=== PATIENT | female | born 1985 | race Caucasian/White ===

== ENCOUNTER 2018-11-23 14:05 | Emergency (ER) | payer OTHER ==
[~2018-11-23] VITALS: Ht 167.6 cm; Wt 547.9 kg
[2018-11-23] MEDS ORDERED: LOSARTAN POTASS25 MG (15:13)
[2018-11-23] MEDS ORDERED: PRENATABS FA T1 EACH (15:13)
== END 2018-11-23 21:11 | disposition home or self-care (01) ==
LOC: ER 14:05
DX: O26.891 Other specified pregnancy related conditions, first trimester (principal); R10.2 Pelvic and perineal pain; O34.81 Maternal care for other abnormalities of pelvic organs, first trimester; N83.291 Other ovarian cyst, right side; Z34.81 Encounter for supervision of other normal pregnancy, first trimester